=== PATIENT | male | born 1980 | race African-American/Black ===

== ENCOUNTER 2023-12-25 10:37 | Emergency (ER) | payer MEDICAID, OTHER ==
[~2023-12-25] VITALS: Ht 167.6 cm; Wt 69.3 kg
[2023-12-25 11:00] VITALS: BP 155/99; PULSE 62; RESP 16; O2SAT 98
== END 2023-12-25 13:18 | disposition left against medical advice (07) ==
LOC: ER 10:37
DX: R20.2 Paresthesia of skin (principal); Z53.21 Procedure and treatment not carried out due to patient leaving prior to being seen by health care provider